=== PATIENT | female | born 1965 | race African-American/Black ===

== ENCOUNTER → 2020-06-19 | Outpatient (CLI) | payer OTHER ==
[~2020-06-19] MED LIST: FOLIC ACID1 MG PO; IMURAN 50MG TAB50 M1 PO; LEVOXYL112 MCG PO; MOBIC15 MG PO; VITAMIN D400 UNI1 PO; XALATAN2.5 ML OP
== END ==
LOC: RAD 10:20
PROVIDERS: ATTEND Pediatrics
DX: R06.02 Shortness of breath (principal); D86.9 Sarcoidosis, unspecified

== ENCOUNTER → 2020-12-19 | Outpatient (CLI) | payer OTHER | LOC: LAB 13:38 | PROVIDERS: ATTEND Pediatrics | DX: Z01.812 Encounter for preprocedural laboratory examination (principal); Z20.822 Contact with and (suspected) exposure to COVID-19 ==

== ENCOUNTER → 2020-12-24 | Outpatient (CLI) | payer OTHER ==
--- NOTE | 2020-12-31 20:08 | PFR/MVV ---
[facility] [place] [address] PULMONARY FUNCTION MVV/REPORT Name: BUCK GOLD Room #: [facility]#: [id number] Admission: 12/24/20 Attend Phys: Ramos Baird MD Discharge: Date of : 65 Report #: [id number] THIS REPORT FOR: //name// >> SPIROMETRY: (BTPS) Height: in cm Weight: lbs kg Exam Date: PRE-RX POST-RX PRED BEST %PRED BEST %PRED %CHG FVC LITERS . . . . . . FEV1 LITERS . . . . . . FEV1/FVC % . . . . . . [id number]% L/Sec . . . . . . PEF L/SEC . . . . . . FEF50/FIF50 UNITLESS . . . . . . MVV L/Min . . . f 1/Min . . . >> LUNG VOLUMES: (BTPS) PRE-RX POST-RX PRED AVG %PRED AVG %PRED %CHG VC Liters . . . . . . TLC Liters . . . . . . RV Liters . . . . . . RV/TLC % . . . . . . FRC PL Liters . . . . . . FRC N2 Liters . . . . . . ERV Liters . . . . . . IC Liters . . . . . . >> DIFFUSION: DLCO ml/Min/mmHg . . . . . . DL Jeff ml/Min/mmHg . . . . . . DLCO/VA ml/Min/mmHg . . . . . . VA Liters . . . . . . COMMENTS: COMMENTS: >> RESISTANCE: [facility] [address] [place] [address] PULMONARY FUNCTION MVV/REPORT Name: BUCK GOLD Room #: [facility]#: [id number] Admission: 12/24/20 Attend Phys: Ramos Baird MD Discharge: Date of : 65 Report #: [id number] PRE-RX PRED AVG %PRED Raw Total cmH20/L/Sec . . . Raw Insp cmH20/L/Sec . . . Raw Exp cmH20/L/Sec . . . Raw cmH20/L/Sec . . . Gaw L/Sec/cmH20 . . . sRaw cmH20 Sec . . . sGaw l/cmH20 Sec . . . Vtq Liters . . . # = OUTSIDE 95% CONFIDENCE INTERVAL CALIBRATION: PRED: 3.00 ACTUAL: EXP 3.01 INSP 3.02 [facility] [id number] >> INTERPRETATION/IMPRESSION: DOC #: [id number] Ramos Baird M.D. DATE OF SERVICE: 12/24/2020 PULMONARY FUNCTION STUDIES SPIROMETRY: FEV1 is 2.36 liters (95%), FVC is 2.92 liters (88%), FEV1/FVC ratio is 81%. There is no significant response to bronchodilator therapy. LUNG VOLUMES: Total lung capacity is 3.96 liters (77%). RV is 0.67 liters (36%). IC to ERV ratio is 2.67-0.55. Diffusion capacity is 73%. IMPRESSION: Pulmonary function studies are consistent with a mild restrictive airflow defect with no significant response to bronchodilator therapy. Diffusing capacity is normal. IC to ERV ratio is slightly increased and suggested restriction. Ramos SALAZAR/RONDA/GOLDY <ELECTRONICALLY SIGNED> By: Ramos Baird MD 12/31/202007 Ramos Baird MD /nt
== END ==
LOC: PUL 08:11
PROVIDERS: ATTEND Pediatrics
DX: D86.9 Sarcoidosis, unspecified (principal)